=== PATIENT | male | born 1980 | race Caucasian/White ===

== ENCOUNTER 2017-01-11 12:12 | Emergency (ER) | payer BC, OTHER ==
[~2017-01-11] VITALS: Ht 188 cm; Wt 89.4 kg
[2017-01-11 12:18] VITALS: TEMP 36.8; Ht 188 cm; Wt 89.4 kg
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
[2017-01-11] MEDS ORDERED: IBUPROFEN 600 MG TAB PO STA (13:55)
[2017-01-11] MEDS ORDERED: CYCL10TA6 PO (13:58)
[2017-01-11] MEDS ORDERED: FLEXERIL HOME PACK 10 MG VIAL PO ONE (14:00)
[2017-01-11] MEDS ORDERED: MOTRIN HOME PACK 600 MG (4)BTL PO ONE (14:00)
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
[2017-01-11 14:06] VITALS: BP 131/82; PULSE 61; O2SAT 97
== END 2017-01-11 14:07 | disposition home or self-care (01) ==
LOC: C.EDB 12:14 → C.EDD 14:07
DX: M54.5 Low back pain (principal); M54.2 Cervicalgia; V43.02XA Car driver injured in collision with other type car in nontraffic accident, initial encounter; Y92.481 Parking lot as the place of occurrence of the external cause